=== PATIENT | female | born 1935 | race Caucasian/White ===

== ENCOUNTER 2019-05-12 12:00 | Inpatient (IN) ==
[2019-05-12] MEDS ORDERED: ZOSYN 4.5 GM in NS 100 ML IV ONE (12:23)
[2019-05-12] MEDS ORDERED: NS 1,000 ML IV ONE (12:23)
[2019-05-12] MEDS ORDERED: DUONEB (A & A) INH ONE (12:25)
[2019-05-12 12:59] LABS: BE 3.5 mmoll (-3.0-3.0); BLOOD TYPE ARTERIAL; HCO3-(ACT) 27.6 mmoll (20.0-26.0); METHB 1.1 % (0.0-1.5); O2(CT) 15.1 mL/dL (15.0-23.0); O2HB 92.6 % (95.0-99.0); PCO2(98.6) 34 mmHg (35-45); PO2(98.6) 61 mmHg (60-100); SAMPLE BLOOD; SAO2 96.1 % (95.0-100.0); THB 11.6 g/dL (11.5-17.4)
[2019-05-12 13:02] LABS: ALLEN TEST YES; MODALITY ROOM AIR
[2019-05-12 13:07] LABS: BASO# 0.01 X1000 (0.0-0.2); BASO% 0.1 % (0.0-0.8); EOS# 0.03 X1000 (0.0-0.7); EOS% 0.4 % (0.0-10.0); HEMATOCRIT 37.2 % (37.0-47.0); HEMOGLOBIN 11.7 g/dL (12.0-16.0); IMM GRAN# 0.02 X1000 (0.0-0.04); IMM GRAN% 0.3 % (0.0-0.5); LYMPH# 0.42 X1000 (1.2-3.4); LYMPH% 5.3 % (20.5-51.1); MCH 27.4 PG (27-31); MCHC 31.5 g/dL (33-37); MCV 87.1 FL (81-99); MONO# 0.51 X1000 (0.11-0.59); MONO% 6.4 % (1.7-9.3); MPV 9.8 FL (7.4-10.4); NEUT# 6.99 X1000 (1.4-6.5); NEUT% 87.5 % (42.2-75.2); PLT 202 X1000 (130-400); RBC 4.27 XMIL (4.2-5.4); RDW 13.9 % (11.5-14.5); WBC 7.98 X1000 (4.8-10.8)
--- NOTE | 2019-05-12 13:17 | Diag Imaging Result Doc PS360 ---
EXAM: CHEST-1 VIEW 05/12/2019 HISTORY: sob, cough TECHNIQUE: Erect AP chest COMMENT: The inspiration is less optimal than on 10/16/2014 and there is ill-defined opacity in the lung bases particularly the left lower lobe. IMPRESSION: Poor inspiration. Bibasilar atelectasis. Electronically signed by Cam Barrow 05/12/2019 1:15 PM
[2019-05-12 13:18] LABS: URINE SOURCE CATH
[2019-05-12 13:18] LABS: INFLUENZA A NEGATIVE (NEGATIVE); INFLUENZA B NEGATIVE (NEGATIVE); INR 1.03
[2019-05-12 13:19] LABS: PTT 30.6 Seconds (22.3-41.8)
[2019-05-12 13:21] LABS: BILIRUBIN URINE NEGATIVE (NEGATIVE); BLOOD URINE MODERATE (NEGATIVE); COLOR YELLOW; GLUCOSE URINE NEGATIVE (NEGATIVE); KETONE URINE NEGATIVE (NEGATIVE); LEUKOCYTES URINE NEGATIVE (NEGATIVE); NITRITE URINE NEGATIVE (NEGATIVE); PH URINE 5.5; PROTEIN URINE 50 mg/dL (NEGATIVE); SP GRAVITY URINE 1.022; TURBIDITY URINE HAZY (CLEAR); UROBILINOGEN URINE NORMAL (NORMAL)
[2019-05-12 13:21] LABS: ALBUMIN 3.9 g/dL (3.5-5.0); CALCIUM 8.9 mg/dL (8.8-10.2); CREATININE 1.4 mg/dL (0.5-0.9); POTASSIUM 3.8 mmol/L (3.5-5.1); TOTAL BILIRUBIN 1.7 mg/dL (0.20-1.00); TOTAL PROTEIN 6.9 g/dL (6.3-8.3)
[2019-05-12 13:23] LABS: UR EPITHELIAL CELLS <10 /HPF (<10); URINE BACTERIA NEGATIVE /HPF; URINE RBC <10 /HPF (<10); URINE WBC <10 /HPF (<10)
[2019-05-12 13:26] LABS: BANDS 2 % (0-1); LYMPHS 4 % (21-51); MONO 5 % (1-9); SEGS 89 % (42-75)
--- NOTE | 2019-05-12 13:53 | Diag Imaging Result Doc PS360 ---
EXAM: CT HEAD W/O CONTRAST HISTORY: altered mental status TECHNIQUE: CT head without contrast COMPARISON: 09/24/2010 FINDINGS: No parenchymal hemorrhage. No epidural or subdural hematoma. No subarachnoid hemorrhage. Right frontoparietal postsurgical changes with encephalomalacia. There are chronic microvascular ischemic changes. Old left pontine lacunar infarct. No mass identified on this noncontrasted exam. No hydrocephalus. No sinus opacification. 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 Electronically signed by Willy Lewis 05/12/2019 1:51 PM
[2019-05-12 14:19] LABS: CK INDEX 0.8 (0.0-2.5); CK-MB 42.89 ng/mL (0.0-5.0)
--- NOTE | 2019-05-12 14:34 | PROVIDER DOCUMENTATION ---
This chart was entered by Glendy Atkins Scribe, acting as scribe for Phil Kumar MD. HPI-General Adult - General Chief Complaint: Weakness Stated Complaint: GENERAL ADULT Time Seen by Provider: 05/12/19 12:13 Source: patient, family (daughter) Allergies/Adverse Reactions: Patient Allergies Allergy/AdvReac Type Severity Reaction Status Date / Time No Known Allergies Allergy Verified 05/12/19 12:25 - History of Present Illness -Gen Adult Nature of Presenting Problems: Patient is a 84 year old female who presents with generalized weakness and fatigue. Daughter states patient was diagnosed with an UTI on 3 days ago and prescribed Marcobid. Patient denies fever, chills, body aches, pain, diarrhea and headache. Daughter states history of CVA and aneurysm Location of Pain/Injury: reports: none Quality of Pain: reports: none Severity: reports: mild Onset/Duration: reports: 3 days ago Timing: reports: still present, getting worse Context/Activities at Onset: reports: light activity Associated Symptoms: reports: fatigue, weakness Similar Symptoms Previously?: Yes Recently seen or treated by another doctor?: Yes Review of Systems - Adult - REVIEW OF SYSTEMS - ADULT Constitutional: reports: see HPI, fatique. denies: chills, fever Eyes: reports: no symptoms reported Ears, Nose, Mouth & Throat: reports: no symptoms reported Cardiovascular: reports: no symptoms reported Respiratory: reports: no symptoms reported Gastrointestinal: reports: see HPI, vomiting. denies: abdominal pain, diarrhea, nausea Genitourinary: reports: no symptoms reported Musculoskeletal: reports: see HPI, muscle weakness. denies: back pain, muscle aches, neck pain Integumentary: reports: no symptoms reported Neurological: reports: no symptoms reported. denies: dizziness/vertigo, headache/migraines, syncope Psychiatric: reports: no symptoms reported Endocrine: reports: no symptoms reported Hematologic/Lymphatic: reports: no symptoms reported Allergic/Immunologic: reports: no symptoms reported All Other Systems: Reviewed and Negative Past History - Adult - PAST MEDICAL HISTORY-ADULT Review of Records: reports: Old Records Reviewed, Nursing Assessment Review, Medications Reviewed, Social history reviewed & non-contributory. Major Childhood Illnesses: reports: denies history Cardiovascular: reports: HTN Respiratory: reports: denies history Gastrointestinal: reports: GERD Obstetrical/Gynecological: reports: denies history Genitourinary: reports: denies history Musculoskeletal: reports: denies history Neurological: reports: CVA, other (aneurysm) Psychiatric: reports: denies history Endocrine/Immune: reports: denies history Other Conditions: reports: denies history - PRIOR SURGERIES/PROCEDURES Surgical/Procedure History: reports: reviewed, not pertinent, appendectomy, cholecystectomy, hysterectomy - IMMUNIZATION STATUS Childhood Immunizations: See Nurse Assessment Flu Vaccine: See Nurse Assessment - FAMILY HISTORY Family History: reviewed, not pertinent - SOCIAL HISTORY Smoking: denies Substance Use: denies Living Situation: family Physical Exam-General - PHYSICAL EXAM-ADULT Initial Vital Signs Reviewed: Yes - CONSTITUTIONAL General Appearance: alert, no apparent distress. negative: obtunded - HEAD, EARS, NOSE, MOUTH & THROAT HENMT: normocephalic/atraumatic, other (dry mucous membranes. thrush present to tongue.). negative: pharyngeal erythema - RESPIRATORY Respiratory: chest non-tender, accessory muscle use, rhonchi (bilateral. right worse than left), wheezing, increased rate. negative: respiratory distress - CARDIOVASCULAR Cardiovascular: regular rate, rhythm. negative: tachycardia, systolic murmur - GASTROINTESTINAL (ABDOMEN) Abdominal Exam: normal bowel sounds, non tender, soft. negative: distended - MUSCULOSKELETAL Extremity: non-tender, normal inspection. negative: pedal edema - SKIN Integumentary: normal color, normal turgor, warm/dry. negative: diaphoresis, pallor - NEUROLOGIC Neurologic: grossly normal - PSYCHIATRIC Psych/Mental Status: normal mood/affect. negative: tearful Progress - PLAN OF CARE/RESULTS Progress/Plan/Lab Results: Vital Signs - 8 hr 05/12/19 12:05 Temperature 98.0 F Pulse Rate 75 Respiratory Rate 16 Blood Pressure 117/54 O2 Sat by Pulse Oximetry 91 L Result Diagrams: 05/12/19 12:40 05/12/19 12:40 - REASSESSMENT Reassessment #1 Time Reassessed: 14:31 Status: improving (given IVF, albuterol and zosyn. Also placed on O2 2L by nc. States feels a little better. Appears to be in rhabdo, ?source) - XRAY 1 XRAY Study: Chest Impression: Abnormal, See EMR Report ( Signed EXAM: CHEST-1 VIEW 05/12/2019 HISTORY: sob, cough TECHNIQUE: Erect AP chest COMMENT: The inspiration is less optimal than on 10/16/2014 and there is ill-defined opacity in the lung bases particularly the left lower lobe. IMPRESSION: Poor inspiration. Bibasilar atelectasis. Electronically signed by Cam Barrow 05/12/2019 1:15 PM 05/12/19 1315 Interpreting Physician: Cam Barrow MD Dictated Date/Time: 05/12/19 1314 cc: Phil Kumar MD; Kurt Daniel MD) - CT/MRI 1 MRI Study: Head Impression: Abnormal, See EMR Report ( EXAM: CT HEAD W/O CONTRAST HISTORY: altered mental status TECHNIQUE: CT head without contrast COMPARISON: 09/24/2010 FINDINGS: No parenchymal hemorrhage. No epidural or subdural hematoma. No subarachnoid hemorrhage. Right frontoparietal postsurgical changes with encephalomalacia. There are chronic microvascular ischemic changes. Old left pontine lacunar infarct. No mass identified on this noncontrasted exam. No hydrocephalus. No sinus opacification. 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 Electronically signed by Willy Lewis 05/12/2019 1:51 PM 05/12/19 1351 Interpreting Physician: Willy Lewis MD Dictated Date/Time: 05/12/19 1349 cc: Phil Kumar MD; Kurt Daniel MD) - CONSULTS/PCP/HOSPITALIST Notification #1 *Consult/PCP/Hospitalist*: [place] Time Discussed: 14:32 Consult Disposition: Admit Departure - Departure Date of Disposition Decision: 05/12/19 Time of Disposition Decision: 14:33 DIAGNOSIS: Dyspnoea or other respiratory complaints, Generalized muscle weakness Rhabdomyolysis Qualifiers: Rhabdomyolysis type: non-traumatic Qualified Code(s): M62.82 - Rhabdomyolysis Disposition: ADMITTED INPATIENT 09 Certified Medical Emergency: Emergent Condition: Stable Referrals and Follow-Ups: Kurt Daniel MD [Primary Care Provider] - - Critical Care Note This patient required my direct & personal management of CC.: No Attestation - Physician/ ELIANA Attestation Patient care was provided by Advanced Practice Provider:: No The physician spent face to face time with patient:: Yes Advanced Practice Provider documentation review:: Supervising physician onsite and consulted in the evaluation and care of this patient. The physician did have a face to face encounter with the patient. This chart was documented by the indicated scribe, (Glendy Atkins Scribe) and accurately reflects the services I performed and decisions made by me, Phil Kumar MD, as attested by the provider's signature.
--- NOTE | 2019-05-12 14:39 | EKG Report ---
Test Performed on : 05/12/2019 1:46:05 PM Test Reason : sob Blood Pressure : / mmHG Vent. Rate : 080 BPM Atrial Rate : 080 BPM P-R Int : 152 ms QRS Dur : 086 ms QT Int : 388 ms P-R-T Axes : 038 -08 009 degrees QTc Int : 447 ms Normal sinus rhythm. Normal ECG When compared with ECG of 28-NOV-2008 15:05, T wave inversion now evident in Inferior leads Nonspecific T wave abnormality no longer evident in Lateral leads Unconfirmed Result
--- NOTE | 2019-05-12 15:55 | HISTORY AND PHYSICAL ---
PRIMARY CARE PHYSICIAN: Kurt Daniel MD CHIEF COMPLAINT: Generalized weakness and fatigue. He was diagnosed with a UTI 3 days ago and has been taking Macrobid that will be complete on Thursday. HISTORY OF PRESENTING ILLNESS: This is an 84-year-old female who presents to [facility] ER with complaints of generalized weakness and fatigue. States she was diagnosed with a UTI 3 days ago and was prescribed Macrobid that she has been taking and will complete by Thursday. Denied any fever, chills, body aches, diarrhea, or headache. Workup showed a sodium of 146, BUN of 36 with a creatinine of 1.4 which appears to be around her baseline. She was 1.4 two years ago. She had some elevated LFTs with a total bilirubin of 1.70, AST 413, ALT 285, alkaline phosphatase 155. Creatine kinase was 5109 with a CK-MB of 42.89. Troponin T high sensitivity was 22. ProBNP of 3975. Urinalysis was negative. Her chest x-ray showed poor inspiration and bilateral atelectasis and a head CT that showed no hemorrhage. So, she will be admitted for further evaluation and treatment. PAST MEDICAL HISTORY: CVA, aneurysm, GERD, hypertension, chronic kidney disease stage 3. PAST SURGICAL HISTORY: Appendectomy, cholecystectomy, hysterectomy. FAMILY HISTORY: Reviewed and noncontributory. SOCIAL HISTORY: She currently lives with family. Denies any tobacco, alcohol or illicit drug use. ALLERGIES: No known drug allergies. HOME MEDICATIONS: A current list will need to be obtained, reconciled, reviewed and restarted as appropriate. We will place an order for nursing to update and confirm home medications. LABORATORY DATA: Showed a white blood cell count of 7.98, hemoglobin 11.7, hematocrit 37.2, platelets 202,000. PT and INR of 14 and 1.03. ABG with a pH of 7.50, pCO2 of 34, PO2 61, bicarb 27.6 on room air. Sodium 146, potassium 3.8, chloride 105, CO2 26, BUN of 36, creatinine 1.4, glucose 122, total bilirubin of 1.70, AST of 413, ALT 285, alkaline phosphatase 155. Creatine kinase of 5109, CK-MB of 42.89. Troponin T high sensitivity at 22. ProBNP of 3975. Plasma lactate of 1.6. Urinalysis was negative. Influenza A and B were both negative. Chest x-ray showed poor inspiration and bibasilar atelectasis. Head CT showed no hemorrhage. Right frontal parietal encephalomalacia with chronic microvascular ischemic changes. REVIEW OF SYSTEMS: She denied any fever, chills, blurred vision, dizziness. She had generalized weakness and fatigue. Denied any chest pain, coughing, shortness of breath denied any abdominal pain, constipation, diarrhea, burning or hurting with urination, and denied any hematuria. PHYSICAL EXAMINATION: VITAL SIGNS: On arrival, she had a temperature of 98 degrees, pulse 75, respirations 16, blood pressure 117/54 saturating 91% on room air, currently saturating 95% on 2 L. GENERAL: This is an 84-year-old female who is lying in the bed and answers questions appropriately. HEENT: Normocephalic, atraumatic. Normal ears, nose exam. Her mouth has dry mucous membranes and thrush present on her tongue. EYES: Pupils are equal, round, reactive to light and accommodation. Extraocular movements are intact. NECK: Normal inspection. Normal range of motion. LUNGS: Clear to auscultation bilaterally with equal lung expansion and chest wall movement. When she arrived, she did have some diffuse rhonchi and wheezing, but none noted at this time. Equal lung expansion. Chest wall movement. HEART: Regular rate and rhythm. No murmurs, rubs, or gallops. ABDOMEN: Soft, nontender, nondistended. Bowel sounds are present x4 quadrants. MUSCULOSKELETAL: She had 5/5 strength x4 extremities. NEUROLOGICAL: The cranial nerves 2-12 appear grossly intact. ASSESSMENT: 1. Generalized weakness. 2. Dehydration. 3. Elevated liver function tests. 4. Rhabdomyolysis. 5. Oral candidiasis. PLAN: She will be admitted to the medical unit at [place], placed on telemetry, O2 per protocol. We will obtain an ultrasound of the abdomen complete in the a.m. She can have a healthy heart diet now and will be n.p.o. after midnight. We will give her some nystatin swish and swallow 5 mL 4 times daily. She has an indwelling Estrella catheter. We will apply SCDs for DVT prophylaxis. Recheck a CBC, BMP, and cardiac profile in the a.m. We will update and confirm home medications and further orders after seen by attending. Dictated by ORTEGA Concepcion for Walker Feng MD cc: ORTEGA Concepcion MD Michael C. Donham, MD
[2019-05-12] MEDS ORDERED: ZOFRAN IV PRN (16:20)
[2019-05-12] MEDS ORDERED: PNEUMOVAX 23 IM ONE (18:00)
[2019-05-12] MEDS: MYCOSTATIN SUSP PO SCH ×2 (19:03→21:45)
[2019-05-12] MEDS: NS 1,000 ML IV SCH (19:03)
--- NOTE | 2019-05-12 19:10 | HISTORY AND PHYSICAL ---
ADDENDUM: Patient seen and examined by myself. Full note dictated and discussed with nurse practitioner. The patient was seen recently and diagnosed with a urinary tract infection. He has been taking Macrobid. He is not improved. We are going to admit him to the hospital. He does have some mild rhabdomyolysis. Will place him on IV fluids and antibiotics and will follow. cc: Walker Feng MD
[2019-05-13] MEDS: NS 1,000 ML IV SCH ×2 (01:05→14:20)
[2019-05-13 06:44] LABS: CALCIUM 7.9 mg/dL (8.8-10.2); CREATININE 1.1 mg/dL (0.5-0.9); POTASSIUM 3.6 mmol/L (3.5-5.1)
[2019-05-13 06:46] LABS: BASO# 0.03 X1000 (0.0-0.2); BASO% 0.6 % (0.0-0.8); EOS# 0.39 X1000 (0.0-0.7); EOS% 7.2 % (0.0-10.0); HEMATOCRIT 31.8 % (37.0-47.0); HEMOGLOBIN 9.6 g/dL (12.0-16.0); IMM GRAN# 0.01 X1000 (0.0-0.04); IMM GRAN% 0.2 % (0.0-0.5); LYMPH# 0.62 X1000 (1.2-3.4); LYMPH% 11.5 % (20.5-51.1); MCHC 30.2 g/dL (33-37); MCV 89.3 FL (81-99); MONO# 0.45 X1000 (0.11-0.59); MONO% 8.3 % (1.7-9.3); NEUT# 3.89 X1000 (1.4-6.5); NEUT% 72.2 % (42.2-75.2); PLT 165 X1000 (130-400); RBC 3.56 XMIL (4.2-5.4); WBC 5.39 X1000 (4.8-10.8)
[2019-05-13] MEDS ORDERED: ZOFRAN IV PRN (07:18)
[2019-05-13] MEDS ORDERED: TYLENOL PO PRN (07:18)
[2019-05-13 07:35] LABS: CK INDEX 0.5 (0.0-2.5); CK-MB 22.15 ng/mL (0.0-5.0)
--- NOTE | 2019-05-13 09:32 | Diag Imaging Result Doc PS360 ---
EXAM: US ABDOMEN-COMPLETE - 05/13/2019 HISTORY: Elevated LFTs TECHNIQUE: Ultrasound abdomen COMPARISON: None. FINDINGS: There are artifacts from patient's body habitus and/or bowel gas which limit detail. The gallbladder surgically absent. The common bile duct is borderline distended at 7 mm, but this is not unusual for post cholecystectomy state. There are no stones identified the visualized portion of common bile duct. Visualized portions of the pancreas are unremarkable. The liver appears diffusely echodense suggesting fatty infiltration. There is no focal liver lesion identified. Doppler image shows hepatopedal flow in the portal vein. The spleen is unremarkable. There is no ascites seen. There is generalized mild thinning of bilateral renal cortices. There are no other abnormalities of the bilateral kidneys identified. Abdominal aorta and IVC appear normal caliber. IMPRESSION: Status post cholecystectomy. Borderline distended common bile duct at 7 mm, which may relate to the postcholecystectomy state. Apparent fatty infiltration of liver. No evidence of focal liver lesion. Electronically signed by Anurag Merino 05/13/2019 9:30 AM
[2019-05-13] MEDS: MYCOSTATIN SUSP PO SCH ×4 (11:16→20:43)
[2019-05-13] MEDS: ZOSYN 3.375 GM in NS 50 ML IV SCH ×2 (14:20→19:25)
--- NOTE | 2019-05-13 18:57 | PROGRESS NOTE ---
DATE: 05/13/2019 SUBJECTIVE: The patient still is having some generalized weakness, although she has not really been out of bed. Denies any fevers or chills. OBJECTIVE: Vital Signs: Temperature 97, pulse 68, respiratory rate 18, BP 114/64. General: The patient is pleasant. She is in no current respiratory distress. Neck: Supple. Cardiovascular: Rate controlled, appears regular. Chest: Clear. Abdomen: Soft. Extremities: Moves all extremities. ASSESSMENT: 1. Generalized weakness. 2. History of atrial fibrillation. 3. Dehydration. 4. Rhabdomyolysis. CPK is down to 4306, of undetermined origin currently. PLAN: We will continue fluids. Continue physical therapy, symptomatic care and will follow. cc: Walker Feng MD
[2019-05-14] MEDS: ZOSYN 3.375 GM in NS 50 ML IV SCH ×4 (02:16→20:52)
[2019-05-14] MEDS: NS 1,000 ML IV SCH ×2 (06:08→06:26)
[2019-05-14 08:00] LABS: HEMOGLOBIN 9.5 g/dL (12.0-16.0); MCH 26.8 PG (27-31); MCHC 30.6 g/dL (33-37); MCV 87.6 FL (81-99); MPV 9.7 FL (7.4-10.4); RBC 3.54 XMIL (4.2-5.4); RDW 13.9 % (11.5-14.5); WBC 5.47 X1000 (4.8-10.8)
[2019-05-14 08:23] LABS: CALCIUM 8.4 mg/dL (8.8-10.2); POTASSIUM 4.1 mmol/L (3.5-5.1); TOTAL BILIRUBIN 0.7 mg/dL (0.20-1.00)
[2019-05-14 08:41] LABS: CK INDEX 0.3 (0.0-2.5); CK-MB 5.3 ng/mL (0.0-5.0)
[2019-05-14] MEDS: MYCOSTATIN SUSP PO SCH ×4 (09:28→20:53)
--- NOTE | 2019-05-14 16:48 | PROGRESS NOTE ---
DATE: 05/14/2019 SUBJECTIVE: Patient with no complaints. States that she is feeling a lot better. Her daughter notes that she has improved significantly since admission. PHYSICAL EXAMINATION: Vital Signs: Temperature 97.8, pulse 70, respiratory rate 18, and BP 141/69. General: Patient is pleasant. She is in no current respiratory distress. She is sitting in the bed eating breakfast with assistance. HEENT: Normocephalic. Neck: Supple. Cardiovascular: Regular rate. Pulmonary: Chest decreased, but equal. Positive rhonchi. No crackles. No wheezing. Abdomen: Soft. Obese. Extremities: Moves all extremities. ASSESSMENT: 1. Adult failure to thrive with generalized weakness. 2. Dehydration resolved. 3. Elevated LFTs. Continue to improve. 4. Rhabdomyolysis. CPK 5109 on admission. Currently 1896, improving. PLAN: We will continue patient in the hospital. Continue fluids for the remainder of this L and then hopefully can stop. Would discontinue her Estrella catheter. Continue physical therapy, but fully expect that she will need rehab on discharge. cc: Walker Feng MD
[2019-05-15] MEDS: NS 1,000 ML IV SCH ×4 (00:05→23:27)
[2019-05-15] MEDS: ZOSYN 3.375 GM in NS 50 ML IV SCH ×4 (01:52→20:05)
[2019-05-15] MEDS: MYCOSTATIN SUSP PO SCH ×4 (12:08→20:05)
--- NOTE | 2019-05-15 12:20 | PROGRESS NOTE ---
DATE: 05/15/2019 SUBJECTIVE: The patient herself notes that she is feeling fine. Denies any current complaints. States overall, she is feeling better. She is having some issues with constipation, however. PHYSICAL EXAMINATION: Temperature 98.2, pulse 70, respiratory rate 18, BP 130/68. General: Patient is pleasant. She is in no respiratory distress. Sitting in the bed. HEENT: Normocephalic. Neck: Supple. Cardiovascular: Regular rate. Chest: Clear. Abdomen: Soft. Extremities: Moves all extremities. Neurologic: No focal changes. Skin: Warm, dry. No rashes. ASSESSMENT: 1. Constipation. We are going to add Colace as well as one dose of lactulose. 2. Rhabdomyolysis. CPK is improved. I am going to recheck in the morning. 3. Generalized weakness, improved, although still requiring assistance. PLAN: We are going to treat her constipation. Recheck her labs in the morning. Hopefully, can transition to rehab if available. cc: Walker Feng MD
[2019-05-15] MEDS ORDERED: LACTULOSE PO ONE (14:45)
[2019-05-15] MEDS: COLACE PO SCH (15:26)
[2019-05-16] MEDS: ZOSYN 3.375 GM in NS 50 ML IV SCH ×2 (01:01→09:12)
[2019-05-16 05:57] LABS: ALBUMIN 2.9 g/dL (3.5-5.0); CALCIUM 8.3 mg/dL (8.8-10.2); MAGNESIUM 1.3 mg/dL (1.5-2.7); POTASSIUM 3.9 mmol/L (3.5-5.1); TOTAL BILIRUBIN 0.7 mg/dL (0.20-1.00); TOTAL PROTEIN 5.7 g/dL (6.3-8.3)
[2019-05-16 05:59] LABS: HEMATOCRIT 30.3 % (37.0-47.0); HEMOGLOBIN 9.6 g/dL (12.0-16.0); MCHC 31.7 g/dL (33-37); MCV 85.4 FL (81-99); MPV 9.7 FL (7.4-10.4); RBC 3.55 XMIL (4.2-5.4); RDW 13.2 % (11.5-14.5); WBC 6.49 X1000 (4.8-10.8)
[2019-05-16 07:18] VITALS: BP 138/87
[2019-05-16] MEDS ORDERED: MAGNESIUM SULFATE 2 GM/S.W.I. 2 GM/50 ML IVPB IV ONE (07:43)
[2019-05-16] MEDS ORDERED: COZAAR PO SCH (09:00)
[2019-05-16] MEDS ORDERED: ASPIRIN PO SCH (09:00)
[2019-05-16] MEDS: MYCOSTATIN SUSP PO SCH (09:12)
[2019-05-16] MEDS: COLACE PO SCH (09:12)
--- NOTE | 2019-05-16 10:39 | DISCHARGE SUMMARY ---
ADMISSION DATE: 05/12/2019 DISCHARGE DATE: 05/16/2019 DIAGNOSES: 1. Constipation, resolved. 2. Rhabdomyolysis, improving. 3. Generalized weakness. 4. Dehydration, resolved. 5. Oral candidiasis. DIAGNOSTICS: 1. 04/15/2019, CT of the head revealed no hemorrhage. Right frontal parietal encephalomalacia with chronic microvascular ischemic changes. 2. Chest x-ray revealed bibasilar atelectasis with poor inspiration. 3. Abdominal ultrasound revealed fatty liver, no evidence of focal liver lesion, status post cholecystectomy. MICROBIOLOGY: Blood cultures x2 revealed no growth after 48 hours. HOSPITAL COURSE: Ms. Buchanan presented to the emergency room complaining of generalized weakness and fatigue and had been noted to have a urinary tract infection 3 days prior to admission with Macrobid that had been taken on an outpatient basis. She is found to be dehydrated with mild rhabdomyolysis. IV fluids and antibiotics were given. CPK total was 5109 on admission. It is down to 1892. She is noted to be in acute kidney injury with a creatinine of 1.4 which is down to 1 today. LFTs have trended down having a total bilirubin of 1.7 on admission that is 0.7 today with an AST of 413, ALT 285, alkaline phosphatase 155 on admission. Today they are 114, 136, and 145 respectively. Today she states that she is feeling fine. She had issues with constipation, but after bowel regimen she has had 4 documented stools. She states that she feels much better. She is eating 100% of her meals and thankfully is ready for discharge. PHYSICAL EXAMINATION: Discharge Vital Signs: Blood pressure is 138/80 with a heart rate of 73, respirations 16, temperature is 98.4 degrees oral with room air saturations 93% to 97%. General: Discharge physical exam, this is an 84-year-old female who is sitting up at the bedside in no distress. HEENT: Head is normocephalic, atraumatic. Mucous membranes are moist. Neck: Supple with trachea midline. Cardiovascular: Regular rate and rhythm. S1 and S2 appreciated. Calves are nontender bilateral with peripheral pulses palpable x4 extremities. Pulmonary: Breath sounds are clear with no increased work of breathing noted. Chest rises and falls symmetric respiration. Neurologic: She is alert and oriented. Skin: Warm and dry. DISCHARGE MEDICATIONS: 1. Omeprazole 20 mg p.o. every night at bedtime. 2. Niacin 500 mg p.o. every night at bedtime. 3. Naprosyn 1 p.o. every p.m. 4. Centrum Silver 1 p.o. daily. 5. Hydrochlorothiazide. 6. Cranberry 1 p.o. daily. 7. Os-Harry 500 one p.o. daily. 8. Atenolol 50 mg 1 p.o. daily. 9. Mycelex troches one 5 times a day. 10. Losartan 50 mg p.o. daily. 11. Aspirin 325 p.o. daily. 12. Allopurinol 100 mg p.o. every p.m. 13. We will hold atorvastatin due to elevated liver function tests. This can be restarted by the facility director. FOLLOWUP: Dr. Daniel and she will need to schedule an appointment within 1 week after discharge from rehab. CONDITION: She is being discharged in stable condition to rehab. TIME SPENT: This is a greater than 30 minute discharge. Dictated by ORTEGA Reynolds for Walker Feng MD cc: ORTEGA Reynolds MD
[2019-05-16] MEDS ORDERED: FLU VACCINE IM ONE (11:28)
[2019-05-16] MEDS ORDERED: LIPITOR PO SCH (21:00)
[2019-05-16] MEDS ORDERED: ZYLOPRIM PO SCH (21:00)
--- NOTE | 2019-05-17 09:03 | DISCHARGE SUMMARY ---
ADMISSION DATE: 05/12/2019 DISCHARGE DATE: 05/16/2019 ADDENDUM: Patient seen and examined by myself. Full note dictated and discussed with nurse practitioner. On discharge, the patient is awake, alert. She is in no distress. She was admitted to the hospital secondary to generalized weakness, noted to be in rhabdomyolysis with a CPK of 5109. This has resolved on discharge. She also was noted to have elevated transaminitis on admission. All of this has also improved. Overall, her mental status has resolved. She is back to her baseline. States she is feeling well, but still too generally weak to go home. We are going to transition her to rehab. cc: Walker Feng MD
== END 2019-05-16 13:04 | DRG 558 ==
LOC: P.ED 12:00 → P.MEDSURG 15:49
PROVIDERS: ADMIT Family Medicine